=== PATIENT | female | born 1980 | race Caucasian/White ===

== ENCOUNTER 2022-10-28 13:18 | Outpatient (CLI) | payer BC, SELFPAY | END 2022-10-28 13:19 | disposition home or self-care (01) | LOC: NFLDREF 10-29 11:32 | PROVIDERS: Visit Provider Registered Nurse | DX: R07.9 Chest pain, unspecified (principal); R10.13 Epigastric pain | CPT/HCPCS: 84484 ==

== ENCOUNTER 2023-02-13 11:52 | Emergency (ER) | payer BC, SELFPAY ==
[2023-02-13 12:06] VITALS: BP 131/88; PULSE 92; RESP 20; TEMP 37.4; O2SAT 96; BMI 29.3
--- NOTE | 2023-02-13 12:27 | ED_ITS ---
HPI - General Adult General Chief complaint: Headache/Migraine Stated complaint: Headaches Time Seen by Provider: 02/13/23 12:03 History of Present Illness HPI narrative: Has had a headache for the last month, almost everyday. Does not wake up w/ headache, but ends the day with one. Does not have any problems with light, sounds, no nausea or vomiting. Started new prescription glasses in the last month and a half. Last had Dr appointment, they thought it could be nasal congestion. Is tearful, her father had a pituitary tumor and is worried about that. 42-year-old woman presenting to the emergency department concern of headache. Is been going on for 3 or 4 weeks now. Has had headaches before but nothing like this. Noted to be tearful upon arrival. She has been experiencing headaches bitemporal as described not generally severe but uncomfortable every day usually starting around mid afternoon. She does not wake up with the pain. Has not been having neck or back pain. She is right-handed. Works as a coding clerk. Has spent a lot of time looking at computer screens. She does have new or transition eyeglasses that she started wearing regular about 6 weeks ago; the prescription was actually given back in October. She has tried her former different prescription glasses here in there since but not for extended period of time. She does not endorse any trauma. No loss of vision no nausea. Seen in clinic recently and treated for what was thought to be a lingering sinus infection or similar with nasal decongestant and antibiotics. The sinus discomfort she had been feeling, indicating her maxillary sinus area, has significantly improved. Headache seemed a little worse today and became concerned more today about a potential pituitary tumor. Her father had a pituitary tumor requiring what sounds like a transsphenoidal surgery. She got t o thinking about how she does not have any family in the area and thinks she experienced a ?freak out?. Related Data Home Medications Medication Instructions Recorded Confirmed amoxicillin 500 mg-potassium 1 tab PO DAILY 02/13/23 02/13/23 clavulanate 125 mg tablet (Augmentin) Allergies Allergy/AdvReac Type Severity Reaction Status Date / Time No Known Drug Allergies Allergy Verified 01/29/23 14:57 Review of Systems Status of ROS: Reports: 6 or more systems reviewed and unremarkable except as noted in History and below [facility] Social History Smoking Status: Never smoker Do you use any of these nicotine containing products: None Second hand tobacco smoke exposure: No How often do you have a drink containing alcohol: never How often do you have six or more drinks on one occasion: Never AUDIT-C Alcohol total score: 0 Non-prescribed substance use: denies use service: No Exam Narrative: Exam Narrative: Pleasant. NAD other than appears mildly anxious and little tearful. Skin is warm and dry without rash. No facial swelling erythema or tenderness. Cranial nerves 2-12 are intact GCS of 15. Pupils are equal brisk and accommodating. She is moving all extremities fluidly without difficulty. Neck is supple. She is little tender to palpation in the medial trapezial, low paracervical and periscapular musculature. Oropharynx is unremarkable. Lungs appear to be clear. Heart in elevated rate but regular rhythm. Const: Vital Signs, click to edit/add: Vital Signs - 24 hr 02/13/23 12:06 Temperature 99.3 F Pulse Rate [Right Pulse Oximeter] 92 Respiratory Rate 20 Blood Pressure [Ri ght Upper Arm] 131/88 Pulse Oximetry 96 Oxygen Delivery Me thod Room Air Documenting provider has reviewed patient's vital signs: yes Course Vital Signs Vital signs: Initial Vital Signs Temperature 99.3 F 02/13/23 12:06 Temperature Source Temporal Artery Scan 02/13/23 12:06 Pulse Rate 92 02/13/23 12:06 Pulse Rhythm Regular 02/13/23 12:06 Respiratory Rate 20 02/13/23 12:06 Blood Pressure 131/88 02/13/23 12:06 Blood Pressure Mean 102 02/13/23 12:06 Blood Pressure Position Sitting 02/13/23 12:06 Pulse Oximetry 96 02/13/23 12:06 Oxygen Delivery Method Room Air 02/13/23 12:06 Vital Signs Temperature 99.3 F 02/13/23 12:06 Pulse Rate 92 02/13/23 12:06 Respiratory Rate 20 02/13/23 12:06 Blood Pressure 131/88 02/13/23 12:06 Pulse Oximetry 96 02/13/23 12:06 Oxygen Delivery Method Room Air 02/13/23 12:06 Temperature 99.3 F 02/13/23 12:06 Pulse Rate 92 02/13/23 12:06 Respiratory Rate 20 02/13/23 12:06 Blood Pressure 131/88 02/13/23 12:06 Pulse Oximetry 96 02/13/23 12:06 Oxygen Delivery Method Room Air 02/13/23 12:06 Medical Decision Making MDM Narrative Medical decision making narrative: This is becoming a chronic daily headache. Certainly could be a number of causes. Glasses prescription, muscle tension, dehydration, emotional stress. Does seem to have some muscular tension that might be contributing. Location would suggest somewhat of a tension headache and it does occur usually later in the day. Understanding her concerns I do though speak with Radiology for best test. Noncontrast CT should be adequate to look for changes within the pituitary and we did offer this to her today. After further recollection she decides to follow up outpatient for this. She does not feel she needs treatment for the headache at this time. See patient discharge plan Discharge Plan Discharge Clinical Impression: Daily headache Patient Disposition: Home, Self-Care Condition: Stable Additional Instructions: Do stay well-hydrated. Consider Excedrin equivalent for your headaches in the do occur. Try to get in little heart pumping exercise daily. Be sure to get quality and regular sleep. These stretches for the upper back might be helpful as well. Could do these daily. Could do some of these on the job. Otherwise follow-up with both your eye clinic/doctor And primary care provider this week as scheduled. Be seen of course directly for loss of vision, new and focal weakness or loss of sensation, severe headache. Prescriptions: No Action amoxicillin-pot clavulanate [Augmentin] 500-125 mg tablet 1 tab PO DAILY Follow Up/Referrals: Provider,Not a Local [Referring] - Stand Alone Forms: [employer] Info Instructions
== END 2023-02-13 13:33 | disposition home or self-care (01) ==
PROVIDERS: Emergency Provider Family Medicine; PCP Family Medicine
DX: R51.9 Headache, unspecified (principal)
CPT/HCPCS: 99283; 99284

== ENCOUNTER 2024-04-06 18:37 | Emergency (ER) | payer BC, SELFPAY ==
[2024-04-06 18:45] VITALS: BP 135/81; PULSE 99; RESP 14; TEMP 36.8; O2SAT 98; BMI 18.3
--- NOTE | 2024-04-06 19:02 | CRLHL7_ITS ---
For Patients: As a result of the Cures Act, medical imaging exams and procedure reports are released immediately into your electronic medical record. You may view this report before your referring provider. If you have questions, please contact your health care provider. INDICATION: Left-sided chest pain. TECHNIQUE: Chest 2 views. COMPARISON: None. FINDINGS: Cardiovascular and mediastinum: Cardiomediastinal silhouette is within normal limits Lungs and pleural spaces: Lungs are clear. No sign of pleural effusion. No pneumothorax. Bones and soft tissues: No significant findings. IMPRESSION: No acute or significant findings. Dictated by Monik Hawthorne MD @ 04/06/2024 7:30:50 PM (Electronically Signed)
--- NOTE | 2024-04-06 19:25 | ED_ITS ---
HPI - General Adult General Date Seen: 04/06/24 Chief complaint: Chest Pain Stated complaint: Chest pains Time Seen by Provider: 04/06/24 18:45 Source: patient Mode of arrival: ambulatory Limitations: no limitations History of Present Illness HPI narrative: Patient is a 43-year-old female presenting to the emergency department for chest pain. She states the past couple days she has been having intermittent left- sided chest pain. She describes it as a burning sensation and a 2 to 3/10 for pain. States she typically has issues with cured but that is more midsternal. This pain is more off to the left. Has not had pain in this area before. Has been doing her GERD medication home since symptoms started to see if they get better. Does not seem to show any improvement. States symptoms will last for about 10-15 minutes at that time. They seem to occur randomly and do not get worse when she exerts herself. Has no associated shortness of breath, headache, vision changes, weakness, numbness, abdominal pain, diarrhea, constipation, lightheadedness, dizziness, fevers, chills. Pain is not radiate anywhere. No history of blood clots. Currently symptom free. Most recent episode was 20 minutes prior to arrival. Related Data Home Medications ?Medication ?Instructions ?Recorded ?Confirmed esomeprazole magnesium 20 mg 20 mg PO DAILY 04/06/24 04/06/24 capsule,delayed release (Nexium) Allergies Allergy/AdvReac Type Severity Reaction Status Date / Time No Known Drug Allergies Allergy Verified 01/29/23 14:57 Review of Systems Status of ROS: Reports: 10 or more systems reviewed and unremarkable except as noted in History and below PFSH PFS Social History Smoking Status: Never smoker Do you use any of these nicotine containing products: None Second hand tobacco smoke exposure: No How often do you have a drink containing alcohol: never How often do you have six or more drinks on one occasion: Never AUDIT-C Alcohol total score: 0 Non-prescribed substance use: denies use service: No Exam Narrative: Exam Narrative: Const: Well-nourished, Well-developed, in mild distress Eyes: PERRL, no conjunctival injection, and symmetrical lids HENT: Atraumatic external nose and ears. Moist mucous membranes. Neck: Symmetric, trachea midline, No thyromegaly. CVS: RRR, No murmurs or gallops. Peripheral pulses 2+ and equal in all extremities RESP: Unlabored respiratory effort. Clear to auscultation bilaterally. GI: Nontender/Nondistended, No rebound or guarding. MSK:Extremities w/o deformity, Normal Active ROM Skin: Warm, Dry. No rashes or lesions. Neuro: Normal Muscle tone, No focal neurological deficits. Psych: Awake, Alert, & Oriented x3. Appropriate mood and affect. Const: Vital Signs, click to edit/add: Vital Signs - 24 hr 04/06/24 18:45 Temperature 98.2 F Pulse Rate [Pulse Oximeter] 99 Respiratory Rate 14 Blood Pressure [Le ft Upper Arm] 135/81 Pulse Oximetry 98 Oxygen Delivery Me thod Room Air Course Vital Signs Vital signs: Initial Vital Signs Temperature 98.2 F 04/06/24 18:45 Temperature Source Temporal Artery Scan 04/06/24 18:45 Pulse Rate 99 04/06/24 18:45 Pulse Rhythm Regular 04/06/24 18:45 Respiratory Rate 14 04/06/24 18:45 Blood Pressure 135/81 04/06/24 18:45 Blood Pressure Mean 99 04/06/24 18:45 Blood Pressure Position Sitting 04/06/24 18:45 Pulse Oximetry 98 04/06/24 18:45 Oxygen Delivery Method Room Air 04/06/24 18:45 Vital Signs Temperature 98.2 F 04/06/24 18:45 Pulse Rate 99 04/06/24 18:45 Respiratory Rate 14 04/06/24 18:45 Blood Pressure 135/81 04/06/24 18:45 Pulse Oximetry 98 04/06/24 18:45 Oxygen Delivery Method Room Air 04/06/24 18:45 Temperature 98.2 F 04/06/24 18:45 Pulse Rate 99 04/06/24 18:45 Respiratory Rate 14 04/06/24 18:45 Blood Pressure 135/81 04/06/24 18:45 Pulse Oximetry 98 04/06/24 18:45 Oxygen Delivery Method Room Air 04/06/24 18:45 Medical Decision Making MDM Narrative Medical decision making narrative: Patient is a 43-year-old female presenting for chest pain. The differential diagnosis of chest pain is broad and includes common etiologies such as musculoskeletal strain, GERD, pneumonia, etc. More serious etiologies considered include PE, coronary artery disease, pneumothorax, aortic dissection, aortic aneurysm. Chest x-ray will be ordered to look for signs pneumonia or pneumothorax. EKG and troponin will be ordered to look for signs of ACS. While I was in the room with her her heart rate did go over 100 and due to that as she cannot be perked out. D-dimer will be ordered. Also order CBC, BMP. She is otherwise stable and aortic dissection and aortic aneurysm appear unlikely. White blood cell count elevated at 13.31. This could be a sign of infection but chest x-ray reviewed by myself and the radiologist shows no signs of a pneumonia. She continues to be asymptomatic in the emergency department. D- dimer within normal limits. PE can not be ruled out. On my review vital signs are stable throughout time in in the emergency department. Oximetry stayed in the mid to high 90s. automatic chief showed no concerning arrhythmias. Viral swabs within normal limits. EKG and troponin shows no concerning abnormalities. Repeat troponin is also within normal limits. Patient is doing well safe for discharge. She is agreeable to this plan. Lab Data Labs: Lab Results 04/06/24 04/06/24 04/06/24 Range/Units 19:02 19:07 19:30 WBC 13.31 H (4.50-11.00) K/uL RBC 4.40 (4.00-5.20) m/uL Hgb 13.0 (12.0-16.0) gm/dL Hct 39.4 (33.0-51.0) % MCV 90 (80-100) fL MCH 30 (26-34) pg MCHC 33 (32-36) gm/dL RDW Coeff of Reggie 12.7 (11.5-15.5) % Plt Count 293 (140-440) K/uL Neut % (Auto) 66.1 (42.0-72.0) % Lymph % (Auto) 25.5 (20-44) % [place] % (Auto) 6.9 (0.0-11.0) % Eos % (Auto) 1.0 (0.0-7.0) % Baso % (Auto) 0.4 (0.0-3.0) % Neut # (Auto) 8.80 H (1.7-7.0) K/uL Lymph # (Auto) 3.40 H (0.90-2.90) K/uL [place] # (Auto) 0.90 (0.00-0.90) K/UL Eos # (Auto) 0.10 (0.00-0.50) K/uL Baso # (Auto) 0.10 (0.00-0.30) K/uL Abs Immat Gran (auto) 0.00 (0.00-0.30) K/uL Imm/Tot Granulo (auto) 0.1 % D-Dimer Quant (PE/DVT) (0.00-0.50) ug/ml Sodium (135-149) mmol/L Potassium (3.6-5.1) mmol/L Chloride (96-114) mmol/L Carbon Dioxide (20-32) mmol/L Anion Gap (7-15) mEq/L BUN (5-24) mg/dL Creatinine (0.5-1.5) mg/dL Estimated Creat Clear Estimated GFR ml/min Glucose (60-115) mg/dL Calcium (8.4-10.6) mg/dL SARS-CoV-2 (PCR) Negative SARS-CoV-2 (Negative) Influenza Type A (PCR) Negative PCR FLU A (Negative) Influenza Type B (PCR) Negative PCR FLU B (Negative) RSV (PCR) Negative PCR RSV (Negative) POC Troponin I 0.00 L (0.01-0.04) ng/ml 04/06/24 Range/Units 19:39 WBC (4.50-11.00) K/uL RBC (4.00-5.20) m/uL Hgb (12.0-16.0) gm/dL Hct (33.0-51.0) % MCV (80-100) fL MCH (26-34) pg MCHC (32-36) gm/dL RDW Coeff of Reggie (11.5-15.5) % Plt Count (140-440) K/uL Neut % (Auto) (42.0-72.0) % Lymph % (Auto) (20-44) % [place] % (Auto) (0.0-11.0) % Eos % (Auto) (0.0-7.0) % Baso % (Auto) (0.0-3.0) % Neut # (Auto) (1.7-7.0) K/uL Lymph # (Auto) (0.90-2.90) K/uL [place] # (Auto) (0.00-0.90) K/UL Eos # (Auto) (0.00-0.50) K/uL Baso # (Auto) (0.00-0.30) K/uL Abs Immat Gran (auto) (0.00-0.30) K/uL Imm/Tot Granulo (auto) % D-Dimer Quant (PE/DVT) 0.29 (0.00-0.50) ug/ml Sodium 138 (135-149) mmol/L Potassium 3.7 (3.6-5.1) mmol/L Chloride 107 (96-114) mmol/L Carbon Dioxide 23 (20-32) mmol/L Anion Gap 8 (7-15) mEq/L BUN 13 (5-24) mg/dL Creatinine 0.7 (0.5-1.5) mg/dL Estimated Creat Clear 74.20 Estimated GFR 110 ml/min Glucose 92 (60-115) mg/dL Calcium 8.9 (8.4-10.6) mg/dL SARS-CoV-2 (PCR) (Negative) Influenza Type A (PCR) (Negative) Influenza Type B (PCR) (Negative) RSV (PCR) (Negative) POC Troponin I (0.01-0.04) ng/ml Imaging Data Chest x-ray: Attestation: I have reviewed the pertinent imaging results. Radiologist's impression: No acute or significant findings. Dictated by Monik Hawthorne MD @ 04/06/2024 7:30:50 PM ECG Data Attestation: I personally reviewed and interpreted this ECG as follows: Prior ECG tracings: available for review Interpretation: Normal sinus rhythm with a rate of 96 beats per minute, normal intervals, normal axis, no ST or T-wave abnormalities. Appears similar previous EKG on file Discharge Plan Discharge Clinical Impression: Atypical chest pain Patient Disposition: Home, Self-Care Condition: Stable Instructions: Noncardiac Chest Pain (ED) Additional Instructions: I cannot say what exactly is causing chest pain at this time but I do not see any emergent issues. He did have a mildly elevated white count was could be a sign of pneumonia starting but your chest x-ray shows no signs of pneumonia. If symptoms persist you should follow-up with your primary care provider. Return to emergency department for new or worsening symptoms Prescriptions: No Action esomeprazole magnesium [Nexium] 20 mg capsule,delayed release(DR/EC) 20 mg PO DAILY Follow Up/Referrals: Flynn Anderson MD [Primary Care Provider] - Stand Alone Forms: [employer] Info Instructions
[2024-04-06 19:49] LABS: PCR FLU A Negative PCR FLU A (Negative); PCR FLU B Negative PCR FLU B (Negative); PCR RSV Negative PCR RSV (Negative); SARS PCR* Negative SARS-CoV-2 (Negative)
[2024-04-06 19:51] LABS: Basophils Percent Auto 0.4 % (0.0-3.0); Hematocrit 39.4 % (33.0-51.0); Immature Granulocytes Pct Auto 0.1 %; Lymphocytes Percent Auto 25.5 % (20-44); Mean Corpuscular HGB Conc 33 gm/dL (32-36); Mean Corpuscular Hemoglobin 30 pg (26-34); Mean Corpuscular Volume 90 fL (80-100); Monocytes Percent Auto 6.9 % (0.0-11.0); Neutrophils Percent Auto 66.1 % (42.0-72.0); Platelet Count* 293 K/uL (140-440); RDW Coefficient of Variation % 12.7 % (11.5-15.5); White Blood Count* 13.31 K/uL (4.50-11.00)
[2024-04-06 19:52] LABS: Slide Review Reflex No
[2024-04-06 20:12] LABS: Chloride* 107 mmol/L (96-114); Potassium* 3.7 mmol/L (3.6-5.1); Sodium* 138 mmol/L (135-149)
[2024-04-06 20:14] LABS: Creatinine* 0.7 mg/dL (0.5-1.5); D Dimer Quantitative* 0.29 ug/ml (0.00-0.50); Estimated Glomerular Filt Rate 110 ml/min
[2024-04-06 20:15] LABS: Anion Gap 8 mEq/L (7-15); Blood Urea Nitrogen* 13 mg/dL (5-24); Calcium* 8.9 mg/dL (8.4-10.6); Carbon Dioxide* 23 mmol/L (20-32); Glucose* 92 mg/dL (60-115)
== END 2024-04-06 22:01 | disposition home or self-care (01) ==
PROVIDERS: Emergency Provider Student in an Organized Health Care Education/Training Program; PCP Family Medicine
DX: R07.89 Other chest pain (principal)
CPT/HCPCS: 36415; 71046; 80048; 84484; 85025; 85379; 87631; 93005; 99284; 99285